=== PATIENT | female | born 1980 | race Caucasian/White ===

== ENCOUNTER 2017-05-11 08:11 | Emergency (ER) | payer OTHER ==
[~2017-05-11] VITALS: Ht 152.4 cm; Wt 50.8 kg
--- NOTE | 2017-05-11 08:48 | ED UPPER/LOWER EXTREMITY COMPL ---
History of Present Illness General Chief Complaint: Lower Extremity Problems Stated Complaint: RIGHT LEG PAIN Source: patient Exam Limitations: no limitations Vital Signs & Intake/Output Vital Signs & Intake/Output Vital Signs Date Time Temp Pulse Resp B/P B/P Pulse O2 O2 Flow FiO2 Mean Ox Delivery Rate 05/11 1132 96.0 94 22 121/59 98 Room Air 05/11 0933 96.8 90 18 112/54 96 Room Air 05/11 0814 96.6 112 16 117/56 97 Room Air Allergies Coded Allergies: NO KNOWN ALLERGIES (06/08/16) Reconcile Medications Diazepam (Valium) 2 MG TABLET 1-2 TAB PO BID PRN SPASM Triage Note: 37 Y/O FEMALE C/O PAIN TO R LOWER EXTREMITY X A FEW DAYS. 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 STATES SHE HAS BEEN HAVING "SHARP SHOOTING" PAIN IN RLE; DENIES HX TRAUMA OR INJURIES. HAS BEEN OFF COUMADIN FOR A FEW DAYS DUE TO HIGH INR. Triage Nurses Notes Reviewed? yes Onset: Abrupt Duration: day(s): (2) Timing: multiple episodes today Severity: moderate, severe Pain/Injury Location: Right: Leg, Thigh, Foot, Ankle. Method of Injury: NONE No Modifying Factors: none Associated Symptoms: SHARP SHOOTING PAIN FROM RIGHT ANKLE TO RIGHT KNEE : No Patient currently breastfeeds: No HPI: This is a very bakari 37-year-old female status post ruptured subarachnoid, coiling, intra-ventricular drain currently at home after one month at [facility] who presents with a chief complaint of leg pain since yesterday. She states she had pain in her right ankle reading up to her knee. She spoke to the on-call neurosurgeon who was unsure she come to the hospital. He advised her to come to the hospital if her symptoms are persistent. This morning she woke up with crampy like decided to come here. She also notes change in her vision with somewhat blurred vision for the last 2 days and change in her taste buds. She was discharged on May 01. While in the hospital patient had a PICC line placed. She developed a DVT associated with PICC line was removed. She has been on Coumadin but has been off for the last 2 days because her INR was running too high. 2 days ago was 5.9 and yesterday was 3.7. Past History Travel History Traveled to [place] past 21 day No Medical History Any Pertinent Medical History? see below for history Neurological: SUBARACHNOID HEMMORHAGE EENT: NONE Cardiovascular: NONE Respiratory: NONE Gastrointestinal: NONE Hepatic: NONE Renal: NONE Musculoskeletal: NONE Psychiatric: NONE Endocrine: NONE Blood Disorders: NONE Cancer(s): NONE MANAGER RECOVERY/Reproductive: NONE Surgical History Surgical History: SUBARACHNOID COILING Psychosocial History Who do you live with Other (see notes) What is your primary language Polish Tobacco Use: Never used Family History Hx Contributory? No Review of Systems Review of Systems Constitutional: Denies: chills, fever, malaise, weakness. EENTM: Reports: no symptoms. Respiratory: Denies: cough, short of breath, sputum production. Cardiovascular: Denies: chest pain, palpitations, peripheral edema. Gastrointestinal/Abdominal: Denies: abdominal pain, nausea, vomiting. Genitourinary: Reports: no symptoms. Musculoskeletal: Reports: see HPI (right leg pain). Denies: muscle pain, muscle stiffness. Skin: Reports: no symptoms. Neurological/Psychological: Reports: tingling. Hematologic/Endocrine: Denies: bruising, bleeding, polyuria, polydipsia. Immunological: Denies: splenectomy. All Other Systems: Reviewed and Negative Physical Exam Physical Exam General Appearance: well developed/nourished, alert, awake, mild distress Head: healing site of ventricular drain Eyes: Bilateral: PERRL, EOMI. Ears, Nose, Throat: normal pharynx, normal ENT inspection, hearing grossly normal Neck: normal inspection, supple Cardiovascular/Respiratory: regular rate/rhythm Peripheral Pulses: 2+ radial (R), 2+ radial (L) Gastrointestinal: SOFT NONTENDER Back: normal inspection Shoulder Left: normal range of motion, normal inspection Shoulder Right: normal range of motion, normal inspection Elbow Left: normal range of motion, normal inspection Elbow Right: normal range of motion, normal inspection Hand Left: normal inspection, normal range of motion Hand Right: normal inspection, normal range of motion Leg Left: normal range of motion, normal inspection Leg Right: normal range of motion, normal inspection Hip Left: normal range of motion, normal inspection Hip Right: normal range of motion, normal inspection Knee Left: normal range of motion, normal inspection Knee Right: normal range of motion, normal inspection Foot Left: normal inspection, normal range of motion Foot Right: normal inspection, normal range of motion Neurologic/Tendon: normal sensation, normal motor functions, normal tendon functions Skin: intact, normal color, warm/dry Lymphatic: no anterior cervical rianna Progress Differential Diagnosis: DVT, NEUROPATHIC PAIN, POST OP CHANGES, BLEED, SEIZURE, ANXIETY Plan of Care: Orders Procedure Date/time Status Add-on Test (ER Only) 05/11 958 Active HUMAN BETA HCG SCREEN 05/11 918 Complete PARTIAL THROMBOPLASTIN TIME 05/11 910 Complete PROTHROMBIN TIME 05/11 910 Complete COMPREHENSIVE METABOLIC PANEL 05/11 910 Complete CBC WITHOUT DIFFERENTIAL 05/11 910 Complete Laboratory Tests 05/11/17917: Anion Gap 10, Estimated GFR > 60, BUN/Creatinine Ratio 40.0 H, Glucose 83, Calcium 8.7, Total Bilirubin 0.6, AST 148 H, ALT 286 H, Alkaline Phosphatase 60, Total Protein 5.6 L, Albumin 3.1 L, Globulin 2.5, Albumin/Globulin Ratio 1.2, Total Beta HCG NEGATIVE, CBC w Diff MAN DIFF ORDERED, RBC 3.36 L, MCV 88.5 , MCH 30.4, RDW 13.5, MPV 7.0 L, Gran % 78.5 H, Lymphocytes % 11.9 L, Monocytes % 9.0, Eosinophils % 0.5, Basophils % 0.1, Absolute Granulocytes 15.7 H, Segmented Neutrophils 77 H, Band Neutrophils 3, Absolute Lymphocytes 2.4, Lymphocytes 8 L, Monocytes 8, Absolute Monocytes 1.8 H, Eosinophils 1, Absolute Eosinophils 0.1, Absolute Basophils 0, Metamyelocytes 2 H, Myelocytes 1 H, Nucleated RBCs 1 H, Platelet Estimate ADEQUATE, Hypochromic-Microcytic 1+ , Anisocytosis 1+, PUBS MCHC 34.3 05/11/1710: PT 26.3 H, INR 2.53 H, APTT 36, Urine Test Cancelled 05/11/2017 11:01:10 AM Ultrasound is negative for DVT. Patient was medicated with Percocet for acute right lower leg pain. Now we'll give her Valium. Patient updated regarding delay and CAT scan reading. Labs show an elevated white blood cell count 20, 000. She is on Decadron by mouth at home. Increased LFTs as well. I will contact [facility] when all results are back. 11:[address] SUSANA CLEMENT ([facility]) 05/11/2017 11:51:03 AM Discussed presentation, examination and results discussed at length with Dr. Toledo on-call for Dr. Dumont. He agrees with discharge at this time. She will call the office for urgent follow-up this week with her neurosurgeon. (MARCIA OGLESBY,LOGAN) Diagnostic Imaging: Viewed by Me: CT Scan, Ultrasound. Discussed w/RAD: CT Scan, Ultrasound. Radiology Impression: PATIENT: JUNIOR CROFT PRESENT AGE: 37 PATIENT ACCOUNT NO: [id number] : 78 LOCATION: [facility] ORDERING PHYSICIAN: LOGAN KENNEDY MD SERVICE DATE: 05/11/17 EXAM TYPE: CAT - CT HEAD WO IV CONTRAST 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 Status post coiling. Presented with new blurred vision, right leg numbness, pain. COMPARISON: CT of the head dated 06/08/2016. TECHNIQUE: Contiguous axial imaging was performed from the skull base to vertex without intravenous administration of contrast. DLP: 538.69 mGy-cm FINDINGS: There is a linear right frontal hypodensity present, without any mass effect, extending from the level of the right anterior frontal convexity to the level of the anterior part of the body of right lateral ventricle, with overlying cortical defect within the overlying skull, most consistent with postsurgical change. There is no evidence of acute intracranial hemorrhage or territorial infarction. No abnormal mass effect or midline shift is seen. Hawk to white matter differentiation is well preserved. No extra-axial fluid collections are identified. There is a radiopaque coil identified in the region of the NINO/ACoA complex, consistent with history of aneurysmal coiling. Due to presence of artifact from the radiopaque coil, the evaluation around this region is slightly technically limited. The ventricles are normal in size. There is no abnormal attenuation within the brain parenchyma except for the likely postsurgical changes involving the right frontal lobe, as described above. The soft tissues are normal. The mastoid air cells and visualized portions of the paranasal sinuses are well aerated. There is a nahum hole defect identified within the right frontal bone IMPRESSION: Postsurgical and post aneurysmal coiling changes are noted, as described above. No definite CT evidence of superimposed acute intracranial hemorrhage. DICTATED BY: CELSO MILAN MD DATE/TIME DICTATED:1046 DOWEL SETTING MACHINE OPERATOR:DANIEL DATE/TIME TRANSCRIBED:05/11/171046 CONFIDENTIAL, DO NOT COPY WITHOUT APPROPRIATE AUTHORIZATION. <Electronically signed in Other Vendor System> SIGNED BY: CELSO MILAN MD 05/11/17 1105 Departure Departure Time of Disposition: 1151 Disposition: HOME OR SELF CARE Condition: Stable Clinical Impression Primary Impression: Right leg pain Referrals: SANDRITA OGLESBY,HERMANN Tomlinson (PCP/Family) Additional Instructions: Continue your pain medication as directed and take the Valium as needed. Continue your Coumadin as well as volume medications. Call the neurosurgeon's office on Saturday for a follow-up appointment. Please take a copy of all your results to them. Departure Forms: Customer Survey General Discharge Information Prescriptions: Current Visit Scripts Diazepam (Valium) 1-2 TAB PO BID PRN SPASM #15 TAB
--- NOTE | 2017-05-11 09:04 | ULTRASOUND REPORT ---
EXAMINATION: US TRIPLEX LOWER EXTREMITY, RIGHT CLINICAL INFORMATION: Right lower extremity pain. COMPARISON: None TECHNIQUE: Color-flow triplex imaging with spectral analysis and compression Doppler were performed on the lower extremity. FINDINGS: Respiratory variation, normal compression and augmented flow are noted throughout the left lower extremity. The visualized common femoral vein, superficial femoral vein, profunda femoral vein, popliteal vein and midcalf peroneal and posterior tibial venous segments show no evidence of deep venous thrombosis. There is no Bruno's cyst. IMPRESSION: Normal triplex scan without evidence of deep venous thrombosis involving the lower extremity.
[2017-05-11 09:31] LABS: ABSOLUTE BASOPHIL COUNT 0 /CUMM (0.0-0.2); ABSOLUTE EOSINOPHIL COUNT 0.1 /CUMM (0.0-0.7); ABSOLUTE GRANULOCYTE CT 15.7 /CUMM (1.4-6.5); ABSOLUTE LYMPH COUNT 2.4 /CUMM (1.2-3.4); ABSOLUTE MONOCYTE COUNT 1.8 /CUMM (0.10-0.60); BASOPHIL % 0.1 % (0.0-2.0); EOSINOPHIL % 0.5 % (0-5); HEMATOCRIT 29.7 % (37-47); MEAN CORPUSCULAR HGB 30.4 PG (27.0-31.0); MEAN CORPUSCULAR HGB CONC 34.3 G/DL (33.0-37.0); MEAN CORPUSCULAR VOLUME 88.5 FL (81.0-99.0); PLATELET COUNT 246 /CUMM (130-400); RBC DISTRIBUTION WIDTH 13.5 % (11.5-14.5); RED BLOOD CELL CT 3.36 /CUMM (4.20-5.40)
[2017-05-11 09:41] LABS: GRANULOCYTE % 78.5 % (42.2-75.2)
[2017-05-11 09:45] LABS: PT 26.3 SEC (9.4-12.5); PTT 36 SEC (25-37)
--- NOTE | 2017-05-11 11:05 | CT SCAN REPORT ---
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 Status post coiling. Presented with new blurred vision, right leg numbness, pain. COMPARISON: CT of the head dated 06/08/2016. TECHNIQUE: Contiguous axial imaging was performed from the skull base to vertex without intravenous administration of contrast. DLP: 538.69 mGy-cm FINDINGS: There is a linear right frontal hypodensity present, without any mass effect, extending from the level of the right anterior frontal convexity to the level of the anterior part of the body of right lateral ventricle, with overlying cortical defect within the overlying skull, most consistent with postsurgical change. There is no evidence of acute intracranial hemorrhage or territorial infarction. No abnormal mass effect or midline shift is seen. Hawk to white matter differentiation is well preserved. No extra-axial fluid collections are identified. There is a radiopaque coil identified in the region of the NINO/ACoA complex, consistent with history of aneurysmal coiling. Due to presence of artifact from the radiopaque coil, the evaluation around this region is slightly technically limited. The ventricles are normal in size. There is no abnormal attenuation within the brain parenchyma except for the likely postsurgical changes involving the right frontal lobe, as described above. The soft tissues are normal. The mastoid air cells and visualized portions of the paranasal sinuses are well aerated. There is a nahum hole defect identified within the right frontal bone IMPRESSION: Postsurgical and post aneurysmal coiling changes are noted, as described above. No definite CT evidence of superimposed acute intracranial hemorrhage.
[2017-05-11 11:32] VITALS: BP 121/59
[2017-05-11] MEDS ORDERED: VALIUM2 M1 PO (11:53)
== END 2017-05-11 12:08 ==
LOC: ERH 08:11
PROVIDERS: Emergency Medicine
DX: M79.604 Pain in right leg (principal)
CPT/HCPCS: 81025